=== PATIENT | female | born 2000 | race Two or more races ===

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

== ENCOUNTER 2021-10-31 14:42 | Emergency (ER) | payer OTHER ==
[~2021-10-31] VITALS: Ht 157.5 cm; Wt 117.9 kg
[~2021-10-31 14:42] MED LIST: IBUP-1955 PO
--- NOTE | 2021-10-31 14:42 | NUR ---
BIBS C/O NOT BEING ABLE TO SEE OUT OF HER R EYE AND STARTED TO HAVE VISUAL HALLUCINATIONS, COULDNT MOVE HER HANDS, HEADACHE AND FEEL DIZZY. 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 VITALS ARE WITHIN NORMAL LIMITS. MARTITA LOONEY.
--- NOTE | 2021-10-31 14:56 | NUR ---
URINE COLLECTED AND SENT
[2021-10-31] MEDS ORDERED: KETOROLAC TROMETHAMINE INJ 30 MG/ML VIAL IV ONE (15:30)
[2021-10-31] MEDS ORDERED: PROCHLORPERAZINE EDISYLATE 10 MG/2 ML VIAL IVP ONE (15:30)
[2021-10-31] MEDS ORDERED: IV NS 0.9% 1,000 ML BAG IV ONE (15:30)
--- NOTE | 2021-10-31 15:40 | NUR ---
LAB COLLECTED AND SENT TO LAB
[2021-10-31] MEDS ORDERED: KETOROLAC TROMETHAMINE 15 MG/ML VIAL ONE (15:44)
[2021-10-31] MEDS ORDERED: PROCHLORPERAZINE EDISYLATE 10 MG/2 ML VIAL ONE (15:44)
[2021-10-31 15:54] LABS: BASOPHILS # (AUTO) 0.1 K/uL (0.0-0.2); BASOPHILS % (AUTO) 0.7 % (0.0-2.0); EOSINOPHILS % (AUTO) 1.9 % (0.0-6.0); HEMATOCRIT 39 % (33-45); HEMOGLOBIN 13.1 g/dL (11.5-14.8); LYMPHOCYTES # (AUTO) 2.4 K/uL (0.8-4.8); LYMPHOCYTES % (AUTO) 25.5 % (20.0-44.0); MEAN CORPUSCULAR HGB CONC 34 g/dl (31.0-36.0); MEAN CORPUSCULAR VOLUME 85 fL (82-100); MONOCYTES # (AUTO) 0.4 K/uL (0.1-1.30); MONOCYTES % (AUTO) 4.6 % (2.0-12.0); NEUTROPHILS # (AUTO) 6.2 K/uL (1.8-8.9); NEUTROPHILS % (AUTO) 67.3 % (43.0-81.0); PLATELET COUNT (AUTO) 284 K/uL (150-450); RED BLOOD CELL COUNT(AUTO) 4.58 MIL/uL (4.0-5.2); WHITE BLOOD COUNT (AUTO) 9.2 K/uL (4.3-11.0)
[2021-10-31 16:09] LABS: ALBUMIN 4.1 g/dL (3.4-5.0); BILIRUBIN,DIRECT 0.1 mg/dL (0.0-0.2); BILIRUBIN,TOTAL 0.4 mg/dL (0.2-1.0); CALCIUM, SERUM 9.2 mg/dL (8.5-10.1); CREATININE 0.8 mg/dL (0.6-1.3); TOTAL PROTEIN, SERUM 7.9 g/dL (6.4-8.2)
[2021-10-31] MEDS ORDERED: BUTA1CAP3 PO (16:57)
[2021-10-31 17:12] VITALS: BP 131/74
== END 2021-10-31 17:12 | disposition home or self-care (01) ==
LOC: ER 14:44
DX: G43.109 Migraine with aura, not intractable, without status migrainosus (principal); R11.2 Nausea with vomiting, unspecified; R44.1 Visual hallucinations; R44.0 Auditory hallucinations; J45.909 Unspecified asthma, uncomplicated; Z79.899 Other long term (current) drug therapy
CPT/HCPCS: 99284; 96374; 96361; 96375; 85025; 80048; 80076; 36415; J0780; J7030; J1885

== ENCOUNTER 2021-11-09 15:55 | Emergency (ER) | payer OTHER ==
[~2021-11-09] VITALS: Ht 170.2 cm; Wt 124.7 kg
[~2021-11-09 15:55] MED LIST changes: +BUTA1CAP3 PO
[2021-11-09 16:08] VITALS: BP 129/68
--- NOTE | 2021-11-09 16:08 | NUR ---
BIBS C/OL ANKLE PAIN S/P FALLING WHILE ICE SKATING. PAIN IS 10/10 ON PA IN SCALE.
[2021-11-09] MEDS ORDERED: ACETAMINOPHEN 325 MG TABLET PO ONE (16:30)
[2021-11-09] MEDS ORDERED: ACETAMINOPHEN 325 MG TABLET ONE (16:33)
--- NOTE | 2021-11-09 16:34 | NUR ---
PT SIGNED WAIVER, PLACED IN PT'S CHART.
--- NOTE | 2021-11-09 16:37 | NUR ---
X RAY AT BEDSIDE
[2021-11-09] MEDS ORDERED: TRAM50TA2 PO (17:46)
--- NOTE | 2021-11-09 18:07 | NUR ---
Patient discharged to home in stable condition. Written and verbal after care instructions given. Patient verbalizes understanding of instruction.
== END 2021-11-09 18:10 | disposition home or self-care (01) ==
LOC: ER 16:10
DX: S92.355A Nondisplaced fracture of fifth metatarsal bone, left foot, initial encounter for closed fracture (principal); J45.909 Unspecified asthma, uncomplicated; X50.1XXA Overexertion from prolonged static or awkward postures, initial encounter; Y93.21 Activity, ice skating; Y92.331 Roller skating rink as the place of occurrence of the external cause; Y99.8 Other external cause status
CPT/HCPCS: 73610-TC; 73630-TC